=== PATIENT | male | born 1965 | race Two or more races ===

== ENCOUNTER 2024-04-05 23:41 | Inpatient (IN) | payer BC, OTHER ==
[~2024-04-05] VITALS: Ht 152.4 cm; Wt 104.8 kg
[2024-04-06] MEDS ORDERED: ASPIRIN 81 MG TAB.CHEW ONE (00:22)
[2024-04-06] MEDS: ASPIRIN 81 MG TAB.CHEW PO ONE (00:24)
[2024-04-06 00:30] LABS: BASOPHILS # (AUTO) 0.1 K/uL (0.0-0.2); BASOPHILS % (AUTO) 1.1 % (0.0-2.0); EOSINOPHILS # (AUTO) 0.2 K/uL (0.0-0.7); EOSINOPHILS % (AUTO) 2.1 % (0.0-6.0); HEMATOCRIT 41 % (39-51); HEMOGLOBIN 13.6 g/dL (13.5-17.5); LYMPHOCYTES # (AUTO) 2.4 K/uL (0.8-4.8); LYMPHOCYTES % (AUTO) 27.9 % (20.0-44.0); MEAN CORPUSCULAR HEMOGLOBIN 31 PG (26.0-33.0); MEAN CORPUSCULAR HGB CONC 34 g/dl (31.0-36.0); MEAN CORPUSCULAR VOLUME 93 fL (80-96); MONOCYTES # (AUTO) 0.6 K/uL (0.1-1.30); MONOCYTES % (AUTO) 6.4 % (2.0-12.0); NEUTROPHILS # (AUTO) 5.4 K/uL (1.8-8.9); NEUTROPHILS % (AUTO) 62.5 % (43.0-81.0); PLATELET COUNT (AUTO) 274 K/uL (150-450); RED BLOOD CELL COUNT(AUTO) 4.34 MIL/uL (4.5-6.0); RED CELL DISTRIBUTION WIDTH 13.2 % (11.5-15.0); WHITE BLOOD COUNT (AUTO) 8.7 K/uL (4.3-11.0)
[2024-04-06 00:50] LABS: INR 0.96 (0.91-1.10); PARTIAL THROMBOPLASTIN TIME 31.7 SEC (24.3-34.3); PROTHROMBIN TIME 10.2 SECS (9.2-11.1)
[2024-04-06 00:59] LABS: CALCIUM, SERUM 8.9 mg/dL (8.5-10.1); CARBON DIOXIDE 29 mmol/L (21-32); CHLORIDE 102 mmol/L (98-107); CREATININE 1.5 mg/dL (0.6-1.3); NT-PRO BNP 181 pg/mL (0-125); POTASSIUM 4.3 mmol/L (3.5-5.1); SODIUM SERUM 137 mmol/L (136-145); UREA NITROGEN, BLOOD 26 mg/dL (7-18)
[2024-04-06 01:02] LABS: GLUCOSE 470 mg/dL (74-106)
[2024-04-06] MEDS ORDERED: INSULIN REGULAR, HUMAN 100 UNIT/ML 10 ML VIAL ONE (01:54)
[2024-04-06] MEDS: INSULIN REGULAR, HUMAN 100 UNIT/ML 10 ML VIAL IV ONE (02:18)
[2024-04-06 02:35] VITALS: BP 127/74; TEMP 97.5; O2SAT 98
[2024-04-06] MEDS ORDERED: ZOLPIDEM TARTRATE 5 MG TABLET PO PRN (03:00)
[2024-04-06] MEDS ORDERED: Z GUARD REMEDY 4 OZ OINT TP PRN (03:00)
[2024-04-06] MEDS ORDERED: MAG HYDROX/AL HYDROX/SIMETH 30 ML UDC PO PRN (03:00)
[2024-04-06] MEDS ORDERED: ONDANSETRON HCL/PF 4 MG/2 ML VIAL IVP PRN (03:00)
[2024-04-06] MEDS ORDERED: MAGNESIUM HYDROXIDE 30 ML UDC PO PRN (03:00)
[2024-04-06] MEDS: ENOXAPARIN SODIUM 40 MG/0.4 ML DISP.SYRIN SQ SCH (03:44)
[2024-04-06 04:00] VITALS: BP 127/71; TEMP 97.8; O2SAT 99
[2024-04-06] MEDS ORDERED: DEXTROSE 50%-WATER 50 ML DISP.SYRIN IV PRN ×2 (05:00→13:30)
[2024-04-06] MEDS: BLOOD SUGAR DIAGNOSTIC 1 EACH STRIP IN SCH (06:36)
[2024-04-06] MEDS: INSULIN REGULAR, HUMAN 100 UNIT/ML 3 ML VIAL SQ PRN ×2 (06:38→17:31)
[2024-04-06 06:46] LABS: BASOPHILS # (AUTO) 0.1 K/uL (0.0-0.2); EOSINOPHILS # (AUTO) 0.2 K/uL (0.0-0.7); EOSINOPHILS % (AUTO) 3.2 % (0.0-6.0); HEMATOCRIT 40 % (39-51); HEMOGLOBIN 13.9 g/dL (13.5-17.5); LYMPHOCYTES # (AUTO) 2.3 K/uL (0.8-4.8); LYMPHOCYTES % (AUTO) 30.3 % (20.0-44.0); MEAN CORPUSCULAR HEMOGLOBIN 32 PG (26.0-33.0); MEAN CORPUSCULAR HGB CONC 35 g/dl (31.0-36.0); MEAN CORPUSCULAR VOLUME 93 fL (80-96); MONOCYTES # (AUTO) 0.6 K/uL (0.1-1.30); MONOCYTES % (AUTO) 8.3 % (2.0-12.0); NEUTROPHILS # (AUTO) 4.3 K/uL (1.8-8.9); NEUTROPHILS % (AUTO) 57.2 % (43.0-81.0); PLATELET COUNT (AUTO) 265 K/uL (150-450); RED BLOOD CELL COUNT(AUTO) 4.34 MIL/uL (4.5-6.0); RED CELL DISTRIBUTION WIDTH 13.2 % (11.5-15.0); WHITE BLOOD COUNT (AUTO) 7.4 K/uL (4.3-11.0)
[2024-04-06 07:11] LABS: BILIRUBIN,DIRECT 0.1 mg/dL (0.0-0.2); BILIRUBIN,TOTAL 0.4 mg/dL (0.2-1.0); CALCIUM, SERUM 8.9 mg/dL (8.5-10.1); CREATININE 1.3 mg/dL (0.6-1.3); MAGNESIUM 2.2 mg/dL (1.8-2.4); POTASSIUM 4.1 mmol/L (3.5-5.1); TOTAL PROTEIN, SERUM 7.2 g/dL (6.4-8.2)
[2024-04-06 07:12] LABS: THYROID STIMULATING HORMONE 3.98 uIU/mL (0.358-3.74)
[2024-04-06] MEDS ORDERED: BLOOD SUGAR DIAGNOSTIC 1 EACH STRIP IN SCH (07:30)
[2024-04-06] MEDS ORDERED: INSULIN REGULAR, HUMAN 100 UNIT/ML 10 ML VIAL SQ SCH (07:30)
[2024-04-06] MEDS: PANTOPRAZOLE 40 MG TABLET.DR PO SCH (08:14)
[2024-04-06] MEDS: ASPIRIN 325 MG TABLET PO SCH (08:14)
[2024-04-06 08:38] VITALS: BP 123/78; TEMP 97.7; O2SAT 98
[2024-04-06 09:23] LABS: THYROID STIMULATING HORMONE 3.95 uIU/mL (0.358-3.74)
[2024-04-06] MEDS: ATORVASTATIN 10 MG TABLET PO SCH (09:26)
[2024-04-06 12:00] VITALS: BP 128/75; TEMP 97.5; O2SAT 100
[2024-04-06] MEDS ORDERED: APIX5TAB PO (13:10)
[2024-04-06] MEDS ORDERED: TICA90TA PO (13:10)
[2024-04-06] MEDS ORDERED: INSU100I30 SQ ×2 (13:10)
[2024-04-06] MEDS ORDERED: LISI10TA29 PO (13:10)
[2024-04-06] MEDS ORDERED: METF-440 PO (13:10)
[2024-04-06] MEDS ORDERED: CARV6.252 PO (13:10)
[2024-04-06] MEDS ORDERED: ISOS30TA86 PO (13:10)
[2024-04-06] MEDS ORDERED: DILT180T PO (13:10)
[2024-04-06] MEDS ORDERED: ASPI-1169 PO (13:10)
[2024-04-06] MEDS ORDERED: ATOR40TA PO (13:10)
[2024-04-06] MEDS ORDERED: MORPHINE SULFATE INJ 2 MG/ML DISP.SYRIN IV PRN (15:00)
[2024-04-06 16:23] VITALS: BP 124/84; TEMP 98.1; O2SAT 98
[2024-04-06] MEDS ORDERED: TICAGRELOR 90 MG TABLET PO SCH (17:00)
[2024-04-06] MEDS: NITROGLYCERIN 30 GM TUBE TP PRN (17:21)
[2024-04-06] MEDS: CARVEDILOL 6.25 MG TABLET PO SCH (17:22)
[2024-04-06] MEDS: BLOOD SUGAR DIAGNOSTIC 1 EACH STRIP VI SCH (17:25)
[2024-04-06] MEDS: HEPARIN SODIUM, PORCINE 5000 UNITS/1 ML VIAL SQ SCH (20:39)
[2024-04-06] MEDS: INSULIN GLARGINE, 100 UNIT/ML CARTRIDGE SQ SCH (21:59)
[2024-04-06 23:00] VITALS: BP 117/80; TEMP 97.3; O2SAT 96
[2024-04-07] VITALS (7 sets, daily range): BP systolic 92–140; BP diastolic 59–84; TEMP 97.5–98.2; O2SAT 96–98
[2024-04-07] MEDS: ACETAMINOPHEN 325 MG TABLET PO PRN (06:20)
[2024-04-07 06:52] LABS: BASOPHILS # (AUTO) 0.1 K/uL (0.0-0.2); BASOPHILS % (AUTO) 0.9 % (0.0-2.0); EOSINOPHILS # (AUTO) 0.3 K/uL (0.0-0.7); EOSINOPHILS % (AUTO) 3.8 % (0.0-6.0); HEMATOCRIT 42 % (39-51); HEMOGLOBIN 14.1 g/dL (13.5-17.5); LYMPHOCYTES # (AUTO) 1.9 K/uL (0.8-4.8); LYMPHOCYTES % (AUTO) 24.3 % (20.0-44.0); MEAN CORPUSCULAR HEMOGLOBIN 31 PG (26.0-33.0); MEAN CORPUSCULAR HGB CONC 34 g/dl (31.0-36.0); MEAN CORPUSCULAR VOLUME 93 fL (80-96); MONOCYTES # (AUTO) 0.5 K/uL (0.1-1.30); MONOCYTES % (AUTO) 6.7 % (2.0-12.0); NEUTROPHILS # (AUTO) 5.1 K/uL (1.8-8.9); NEUTROPHILS % (AUTO) 64.3 % (43.0-81.0); PLATELET COUNT (AUTO) 265 K/uL (150-450); RED BLOOD CELL COUNT(AUTO) 4.51 MIL/uL (4.5-6.0); RED CELL DISTRIBUTION WIDTH 13.3 % (11.5-15.0)
[2024-04-07 07:23] LABS: CALCIUM, SERUM 9.2 mg/dL (8.5-10.1); CREATININE 1.1 mg/dL (0.6-1.3); MAGNESIUM 2.3 mg/dL (1.8-2.4); PHOSPHORUS 3.6 mg/dL (2.5-4.9)
[2024-04-07] MEDS: ISOSORBIDE MONONITRATE (30MG) 30 MG TAB.SR.24H PO SCH (08:32)
[2024-04-07] MEDS: DILTIAZEM HCL CD 180 MG PO SCH (08:33)
[2024-04-07] MEDS: ATORVASTATIN 40 MG TABLET PO SCH (08:37)
[2024-04-07] MEDS: INSULIN GLARGINE, 100 UNIT/ML CARTRIDGE SQ SCH (08:40)
[2024-04-07] MEDS: LISINOPRIL (10MG) 10 MG TABLET PO SCH (09:00)
[2024-04-07] MEDS: Fenofibrate 48 MG TABLET PO SCH (10:01)
[2024-04-07 10:11] LABS: *SPE A/G RATIO 0.9 (0.7-1.7); *SPE ALBUMIN 3.1 g/dL (2.9-4.4); *SPE ALPHA-1-GLOBULIN 0.2 g/dL (0.0-0.4); *SPE ALPHA-2-GLOBULIN 0.8 g/dL (0.4-1.0); *SPE GLOBULIN, TOTAL 3.5 g/dL (2.2-3.9); *SPE M-SPIKE Not Observed g/dL (Not Observed); *SPE PROTEIN TOTAL 6.6 g/dL (6.0-8.5); *SPEGAMMA GLOBULIN 1.4 g/dL (0.4-1.8)
[2024-04-07] MEDS ORDERED: NITROGLYCERIN 0.4 MG/TAB BOTTLE ONE (21:21)
[2024-04-07] MEDS ORDERED: IV NS 0.9% 250 ML IV ONE ×2 (21:21→21:55)
[2024-04-07] MEDS ORDERED: IOHEXOL-350 100 ML VIAL IV ONE ×2 (21:21→21:55)
[2024-04-07] MEDS ORDERED: METOPROLOL TARTRATE INJ 5 MG/5 ML AMPUL ONE (21:21)
[2024-04-07] MEDS ORDERED: NITROGLYCERIN 4.9 GM SPRAY SL ONE (21:30)
[2024-04-07] MEDS: NITROGLYCERIN 0.4 MG/TAB BOTTLE SL PRN (21:51)
[2024-04-07] MEDS: METOPROLOL TARTRATE INJ 5 MG/5 ML AMPUL IVP PRN (21:51)
[2024-04-07] MEDS ORDERED: METOPROLOL TARTRATE INJ 5 MG/5 ML AMPUL IVP PRN (22:00)
[2024-04-07] MEDS ORDERED: NITROGLYCERIN 0.4 MG/TAB BOTTLE SL PRN (22:00)
[2024-04-07] MEDS: *INSULIN REGULAR(HUMULIN R)HUM 100 UNIT/ML VIAL SQ PRN (22:57)
[2024-04-08] VITALS: BP 92/59; TEMP 97.5; O2SAT 98
[2024-04-08 04:00] VITALS: BP 113/73; TEMP 98.4; O2SAT 98
[2024-04-08 04:44] VITALS: BP 113/73; TEMP 98.4; O2SAT 98
[2024-04-08 08:00] VITALS: BP 141/83; TEMP 97.9; O2SAT 95
[2024-04-08 08:54] VITALS: BP 141/83
[2024-04-08] MEDS ORDERED: FENO48TA PO (11:16)
[2024-04-08] MEDS ORDERED: EMPA10TA PO (11:16)
[2024-04-08 13:00] LABS: CALCIUM, SERUM 8.9 mg/dL (8.5-10.1); CREATININE 1.1 mg/dL (0.6-1.3); POTASSIUM 4.6 mmol/L (3.5-5.1)
== END 2024-04-08 15:48 | disposition home or self-care (01) | DRG 190 ==
LOC: ER 23:44 → TELE 04-06 01:21 → MED 04-08 09:10
PROVIDERS: ADMIT Nurse Practitioner Family; ATTEND Nurse Practitioner Acute Care
DX: I25.10 Atherosclerotic heart disease of native coronary artery without angina pectoris (principal); I21.A1 Myocardial infarction type 2; N17.9 Acute kidney failure, unspecified; E11.65 Type 2 diabetes mellitus with hyperglycemia; E11.22 Type 2 diabetes mellitus with diabetic chronic kidney disease; I13.10 Hypertensive heart and chronic kidney disease without heart failure, with stage 1 through stage 4 chronic kidney disease, or unspecified chronic kidney disease; Z95.5 Presence of coronary angioplasty implant and graft; N18.9 Chronic kidney disease, unspecified; E66.01 Morbid (severe) obesity due to excess calories; Z68.42 Body mass index [BMI] 45.0-49.9, adult; Z88.0 Allergy status to penicillin; G47.33 Obstructive sleep apnea (adult) (pediatric); Z79.82 Long term (current) use of aspirin; Z79.84 Long term (current) use of oral hypoglycemic drugs; Z79.899 Other long term (current) drug therapy; Z79.01 Long term (current) use of anticoagulants
CPT/HCPCS: 36415; 71045-TC; 75574; 80048-TC; 80061-TC; 80076-TC; 82962-TC; 83735-TC; 83880; 84100-TC; 84155; 84165; 84439-TC; 84443-TC; 84484-TC; 85025-TC; 85730-TC; 93307-TC; G0378; G0480; J1644; J1650; J1815; J3490; J7050; Q9967